=== PATIENT | female | born 1990 | race Caucasian/White ===

== ENCOUNTER 2020-11-29 18:52 | Emergency (ER) | payer OTHER ==
[~2020-11-29] VITALS: Ht 149.9 cm; Wt 46.3 kg
[2020-11-29 19:06] VITALS: BP 137/80
--- NOTE | 2020-11-29 19:12 | NUR ---
PT AMBULATORY TO BED #6
--- NOTE | 2020-11-29 19:15 | NUR ---
30 Y/O FEMALE PRESENTED TO ED C/O VOMITTING & NAUSEA SINCE SUNDAY. PT STATES SHE WENT OUT DRINKING ON SUNDAY BUT ONLY HAD 1 SHOT AND 1 GLASS OF ALCOHOL AND EVER SINCE HAS BEEN FEELING NAUSEAS & VOMITTING . PT STATES EVERY TIME SHE EATS SHE VOMITS. PT DENIES ABD PAIN, FEVER, BODY ACHES. NORMOACTIVE BOWEL SOUNDS. PT RESTING IN BED, LOCKED AND IN LOWEST POSITION, HOB ELEVATED, SIDE RAIL X1. VSS. NO ACUTE DISTRESS NOTED. PMH: SKIN DISORDER NKA
[2020-11-29] MEDS ORDERED: NACL 0.9% 1,000 ML IV ONE (19:20)
[2020-11-29] MEDS ORDERED: ONDANSETRON 4 MG/2 ML VIAL IVP ONE (19:20)
--- NOTE | 2020-11-29 19:58 | NUR ---
Dr. Morton examining patient.
[2020-11-29] MEDS ORDERED: ONDA8TAB87 PO (20:02)
--- NOTE | 2020-11-29 20:10 | NUR ---
IV removed, catheter intact and site benign. Applied folded 4x4 gauze and tape to stop bleeding.
[2020-11-29 20:16] VITALS: BP 137/80
== END 2020-11-29 20:16 | disposition home or self-care (01) ==
LOC: MED 18:52
DX: R11.2 Nausea with vomiting, unspecified (principal); F12.10 Cannabis abuse, uncomplicated
CPT/HCPCS: 81002; 81025; 96361; 96374; 99283; J2405; J7030